=== PATIENT | female | born 1960 | race Caucasian/White ===

== ENCOUNTER → 2016-08-18 | Outpatient (CLI) | payer MEDICAID ==
[~2016-08-18] MED LIST: AMLODIPINE10 MG PO; DICLOFENAC SODI50 MG PO; DULOXETINE 30MG30 MG PO; FLEXERIL10 M1 PO; HYDROCHLOROTH12.5 M1 PO; HYDROCODONE-APA1 TA1 PO; HYDROXYZINE 25M25 MG PO; LIPITOR40 MG PO; LORATADINE 10MG10 M1 PO; LORTAB 5/500 501 TAB PO; NADOLOL PO; NAPROSYN 500MG500 MG PO; NOMEDS; OXYCODONE-ACETA1 TAB PO
--- NOTE | 2016-08-18 14:46 | RADIOLOGY REPORT PS360 ---
WRIST-3 VIEWS-LT INDICATION: Left wrist pain TECHNIQUE: 3 views left wrist COMPARISON: 3 views left wrist from 01/14/2013 FINDINGS: . Distal radius and ulna intact. Carpal bones appear intact and unchanged. Joint spaces are fairly well-maintained throughout the wrist with no acute findings. The fat plane anterior to wrist appears normal and stable. No fracture nor dislocation apparent. . Normal mineralization. No obvious radio opaque foreign bodies. IMPRESSION: Negative left wrist. Intact No significant change since 2012
== END ==
LOC: RAD 13:25
DX: M25.532 Pain in left wrist (principal)

== ENCOUNTER 2017-01-21 17:30 | Emergency (ER) | payer MEDICAID ==
[~2017-01-21] VITALS: Ht 165.1 cm; Wt 54.4 kg
[2017-01-21 17:56] LABS: HEMOGLOBIN 14.2 g/dL (12.2-16.2); LYMPH # 2.8 K/mm3 (0.7-4.5); LYMPH % 45.6 % (10-50.0)
--- NOTE | 2017-01-21 17:59 | Emergency Room Report ---
History of Present Illness Time Seen by [id number] Presenting Problem in Triage Pt arrived:Walked Presenting Problem:RIGHT SIDE NUMBNESS, FEELS LIKE MOUTH IS DRAWN. NO OBVIOUS SIGNS. WEAKER TECHNICAL STAFF ENGINEER RIGHT HAND Onset of symptoms date/time:/ or onset unknown for:MEDICAL HX UNKNOWN Treatment Prior to Arrival: LATHE WINDER Provided by: Sepsis Risk Assessment: Temp: 98.3 B/P: 123/75 MAP: 91 Pulse: 85 Resp: 18 Recent fever? N Clinical Suspician of Infection? Y Mental Status: 1 - Regular (Normal Baseline) Sepsis Risk:Low Sepsis Risk Have you (or family members/close friends) recently traveled outside the [place]? N If Yes, where/when: Have you had exposure to infectious disease within the past month? TB? Other? Specify: Source patient, RN notes reviewed Exam Limitations no limitations Comment Pt comes to the ED ~5:45 PM with complaints of feeling some right sided weakness and numbness since about 9:30 PM last night but says it was worse around 6:30 AM today when she woke up. She has a history of CAD and says she has had a "few" heart attacks but denies having any stents or bypass surgery. She does take a Baby Aspirin daily and also a statin drug and a beta adam. 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 Now complains of numbness in the right hand and right leg and into her right foot but her smile is symmetrical, speech is clear and tongue protrudes in the midline. When she closes her eyes she seems to have some trouble holding her right arm up and it is tremulous but I do not see an obvious arm drift. She has never had a stroke or a TIA in the past and no black spells or dizziness reported at this time After getting most of her tests back, she told me she has been taking care of her 80 yo mother who fell several months ago and broke a bunch of bones but the mother is ambulating some now and seems to be doing better . The pt also just started a new job sewing and that has been an added stress as well Cardiac Chest Pain Chest pain indicative of cardiac No ALLERGIES Coded Allergies: Penicillins (Intermediate, I-RASH 01/21/17) diphenhydramine (From BENADRYL) (Intermediate, BP RAISES 01/21/17) gabapentin (Intermediate, I-HIVES 01/21/17) morphine (Intermediate, I-HIVES 01/21/17) Home Medications Reported Medications Diclofenac Sodium (Unknown Dose) PO BID Amlodipine Besylate (Amlodipine) (Unknown Dose) PO DAILY Hydrochlorothiazide (Hydrochlorothiazide 12.5MG) 12.5 MG PO DAILY Duloxetine Hcl (Duloxetine 30MG Capsule) 30 MG PO DAILY Nadolol (Unknown Dose) PO DAILY Atorvastatin Calcium (Atorvastatin) (Unknown Dose) PO DAILY Loratadine (Loratadine 10MG Tablet) 10 MG PO DAILY Hydroxyzine Pamoate (Hydroxyzine) (Unknown Dose) PO PRN PRN RASH (Art OCAMPO,Aubree) History Medical History General CAD? Yes Angina: Yes [place]: Yes Hypertension? Yes Hyperlipidemia? Yes CHF? Yes DVT? No PE? No COPD? No Asthma? Yes Anemia? No GERD? Yes Gastric ulcers? No GI Bleed? No Hernia? No Thyroid Problems? No Hypothyroidism? No CVA? No Seizures? No Diabetes? No Renal Insuffiency? No End Stage Renal Disease? No UTI? No Stones? No BPH? No GB Disease: No Nephritic Syndrome? No Asplenia? No Hepatitis? No Sickle Cell Disease? No Arthritis? Yes Migraines? No Cataracts? No Glaucoma? No MRSA? No HIV? No TB? No Anxiety? Yes Depression? No Cancer? No More? 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 LMP N/A Family History Family Hx Diabetes Yes CAD Yes Hypertension Yes Hyperlipidemia Yes Cancer Yes TB No Social History Smoking Hx Smoker: Current Every Day Smoker Tobacco: Yes Type Cigarettes Packs/day < 1 Pack Alcohol Alcohol: No (Art OCAMPO,Aubree) Review of Systems All Other Systems Reviewed and Negative Constitutional see HPI Cardiovascular see HPI Musculoskeletal see HPI Psychiatric/Neurological see HPI (Aubree Cordova MD) Physical Exam Vital Signs Vital Signs Date Time Temp Pulse Resp B/P Pulse O2 O2 Flow FiO2 Ox Delivery Rate 01/21 2002 85 16 160/109 100 01/21 1923 20 01/21 1918 87 18 171/118 97 01/21 1746 98.3 85 18 123/75 98 General Appearance normal appearance, WD/WN, no apparent distress Neck normal inspection, non-tender, supple, full range of motion, no bruits heard by me Respiratory Status No: respiratory distress. 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 No Results/Orders Laboratory Tests 01/21/17 1915: Opiates Screen Pending, Urine Methadone Screen Pending, Barbiturates Pending, Phencyclidine Screen Pending, Amphetamines Screen Pending, Benzodiazepines Screen Pending, Cocaine Screen Pending, Marijuana (THC) Screen Pending, Urine Color YELLOW, Urine Appearance CLEAR, Urine pH 7.0, Ur Specific Friendship <= 1.005 , Urine Protein NEGATIVE, Urine Ketones NEGATIVE, Urine Blood TRACE-INTACT, Urine Nitrate NEGATIVE, Urine Bilirubin NEGATIVE, Urine Urobilinogen 0.2, Ur Leukocyte Esterase NEGATIVE, Urine RBC 3-5, Urine WBC OCC, Ur Squamous Epith Cells 3-5, Urine Bacteria OCC, Urine Glucose NEGATIVE 01/21/17 1800: Sodium 136, Potassium 3.2 L, Chloride 102, Carbon Dioxide 25, BUN 8, Creatinine 0.8, Estimated Creat Clear 68, Estimated GFR (MDRD) 74, Glucose 111 H, Calcium 8.9, Total Bilirubin 0.3, AST 9 L, ALT 13, Alkaline Phosphatase 88, Total Protein 6.8, Albumin 3.6, Globulin 3.2, Albumin/Globulin Ratio 1.1, PT 10.4, INR 0.96, APTT 27.1 01/21/17 1745: WBC 6.2, RBC 4.28, Hgb 14.2, Hct 42.1, MCV 98.4 H, RDW 13.1, Plt Count 333, MPV 7.2 L, Gran % 46.1, Gran # 2.9, Lymphocytes % 45.6, Monocytes % 6.5, Eosinophils % 1.1, Basophils % 0.7, Lymphocytes # 2.8, Monocytes # 0.4, Eosinophils # 0.1, Basophils # 0.0, PUBS MCHC 33.8, MCH 33.3 H Current Medication Orders Sig/Sotero Start time Last Medication Dose Route Stop Time Status Admin Ketorolac 30 MG ONCE ONE 01/21 1930 DC 01/21 Tromethamine IV 01/21 Ketorolac 0 .STK-MED ONE 01/21 1921 DC Tromethamine .ROUTE Sodium Chloride 10 ML PRN PRN 01/21 1745 AC IV 01/22 1740 Orders Procedure Date/time Status DIET-NOTHING BY MOUTH 01/[address] LUMBAR WITH CONTRAST 01/[address] SCAN REQUEST 01/21 191 Complete URINALYSIS/COMPLETE 01/21 175 Complete PARTIAL THROMBOPLASTIN TIME 01/21 175 Complete PROTHROMBIN TIME 01/21 175 Complete DRUG ABUSE SCREEN (10) 01/[address] HEAD REQ 01/21 174 Active IV SALINE LOCK 01/21 174 Active CBC WITH AUTO DIFF 01/21 1741 Complete CHEM 12 PROFILE 01/21 1741 Complete Departure Departure Time of Disposition 2029 Clinical Impression Primary Impression: Generalized anxiety disorder Secondary Impressions: Degenerative disc disease Qualifiers: Spinal region: lumbar Qualified Code: M51.36 - Other intervertebral disc degeneration, lumbar region Condition STABLE Referrals Heron OCAMPO,Joel Barboza (Family): [facility] Patient Instructions Anxiety Disorders, DI for Anxiety -- Adult, Generalized Anxiety Disorder, Low Back Pain Additional Instructions Use medicines as directed. Followup with Dr. Shelby if symptoms worsen for further evaluation. Send home with robaxin 500 mg TID to take with her Diclofenac and if her labs are normal she will be discharged home by Dr. Ravi to followup with dr. Shelby Discharge Counseling Counseled pt/family regarding diagnosis, test results, medications/RX, home care, follow up needs Prescriptions Current Visit Scripts Methocarbamol (Robaxin) 500 MG PO TID #90 TAB ED Critical Care Critical Care No If Critical Care minutes are documented, the time involved in the performance of seperately reportable procedures was not counted toward critical care time documented. I directly delivered medical care to this critically ill and/or injured patient. Timely evaluation and treatment was necessary to address the significant organ system(s) dysfunction present in this patient. (Art OCAMPO,Aubree) Departure Disposition DC Home or Self Care(routine) (Breonna OCAMPO,Vaishali Mendez) at 2035 at 2106
--- NOTE | 2017-01-21 18:06 | RADIOLOGY REPORT PS360 ---
CT CT HEAD WITHOUT CONTRAST CT BONE WINDOWS included ORDERING PHYSICIAN : Aubree Cordova MD PATIENT AGE: 56 years GENDER: Female PROCEDURE: Routine axial images headwithout contrast. Brain & bone windows HISTORY: RT SIDE WEAKNESS. COMPARISON: Previous CT head with with without contrast from February 2016 FINDINGS: No acute intracranial findings. No hemorrhage. No mass effect or mass lesion. No subdural nor extra-axial collection. Ventricles & basal cisterns appear satisfactory. Guerra & white matter patterns satisfactory. The posterior fossa appear satisfactory and unremarkable. The skull is intact. Mild mucosal thickening throughout the partially imaged left maxillary sinus. Deviation nasal septum to the left.. Mastoid air cells, middle ear & IACs are unremarkable. Critical result called to ER stat on 01/21/2017 6:02 PM. IMPRESSION: No acute intracranial findings. No significant change since previous CT head 03/30/2016.
[2017-01-21 20:59] LABS: URINE BILIRUBIN - DIPSTICK NEGATIVE (NEG); URINE BLOOD TRACE-INTACT (NEG)
[2017-01-21 21:08] LABS: AMPHETAMINES/METAMPHETAMINES NEGATIVE ng/mL (<1000)
[2017-01-21 21:11] VITALS: BP 160/109
--- NOTE | 2017-01-23 10:00 | RADIOLOGY REPORT PS360 ---
CT LUMBAR WITH CONTRAST HISTORY: LOW BACK PAIN low back pain radiates to right hip. At the 6-year-old. Patient Age: 56 years: Female Ordering Physician: Vaishali Ravi MD TECHNIQUE: Helical CT scan film lumbar spine with sagittal coronal reconstructions COMPARISON : No previous studies FINDINGS Vertebral bodies, no compression fractures. No discrete acute findings. Mild dextroscoliosis upper T-spine most evident at L1-L2 T10/11 and T 11/12.:. Disc intact these levels borderline narrowing. . L1/L2. Disc space narrowing most evident most notable at this level. Disc space narrowing is slightly more pronounced to the left. Associated vacuum phenomena & mild reactive endplate changes.. Mild Diffuse Disc bulge most evident central appears to be evident at this level on sagittal images. Anterior marginal osteophytes. Also generous Schmorl's node superior endplate L2.. L2/3. Disc intact unremarkable L3/4. Disc well-maintained. Only perhaps scant leftward disc bulge with minor left foraminal encroachment question. L4/5. Borderline disc space narrowing. Minimal diffuse disc bulge. Mild ligamentum flavum hypertrophy and facet hypertrophy. These features only very subtle narrowing of of spinal canal but no significant stenosis as of yet L5/S1. Disc well maintained with only slight narrowing to the right Scant if any disc bulge. Mild central calcification along disc margin. Facetsintact. Transverse processes intact. Sacrum intact. Incidental note elongated lobe of liver measuring 23 cm length and extending into the right pelvis-likely Shikha's lobe overall liver volume appearing satisfactory otherwise.: . Generous stool throughout the colon. No renal calculi. IMPRESSION . 1. No compression fracture. no acute findings 2. Mild degenerative changes L-spine: -Most notable is the degenerative disc space narrowing most evident at L1/2, associated with Mild dextroscoliosis associated at this level.. Diffuse disc bulge -Also minor degenerative disc changes L4/5 and possibly L5/S1. . L4/5 with mild bulging disc & minor ligamentum flavum and facet hypertrophy. 3. No disc herniation evident. No martinez spinal stenosis nor prominent foraminal encroachment by CT. If symptoms progress consider MR ...
== END 2017-01-21 21:15 | disposition home or self-care (01) ==
LOC: ER 17:30
PROVIDERS: General Practice
DX: F41.1 Generalized anxiety disorder (principal); M51.36 Other intervertebral disc degeneration, lumbar region; F17.210 Nicotine dependence, cigarettes, uncomplicated; I25.10 Atherosclerotic heart disease of native coronary artery without angina pectoris; I25.2 Old myocardial infarction; E78.5 Hyperlipidemia, unspecified; I11.0 Hypertensive heart disease with heart failure; I50.9 Heart failure, unspecified; J45.909 Unspecified asthma, uncomplicated; Z79.899 Other long term (current) drug therapy

== ENCOUNTER → 2017-02-13 | Outpatient (CLI) | payer MEDICAID ==
[~2017-02-13] MED LIST changes: +ROBAXIN500 M1 PO
--- NOTE | 2017-02-16 19:57 | RADIOLOGY REPORT PS360 ---
PROCEDURE: 2-D M-mode and color Doppler study INDICATIONS FOR THE TEST: Chest pain X COPD Heart Murmur Tobacco SmokingX Palpitations FatigueX Syncope Edema HypertensionXDiabetes Mellitus Rheumatic Fever SOBXDOE Obesity Hyperlipidemia Family History HD Additional History DAVID PATIENT INFORMATION HEIGHT: 65 WEIGHT:108 GENDER: Female B/P:125/84 2-D/M-MODE INTERPRETATION: 2-D MEASUREMENTS OBSERVED VALUES IN CMS Right Ventricular Dimension (RVDd) 1.2 Interventricular Septum (Thickness)(IVsd) .7 Left Ventricular Internal Dimensions(LVIDd) 4.8 Left Ventricular Posterior Wall (Thickness)(LVPWd) .8 Aortic Root 3.2 Aortic Cusp Separation 1.5 Left Atrial Dimensions (LAD) 2.1 2D 1. Left atrium is qualitatively mildly enlarged, left ventricle is normal size, there is mild concentric left ventricular hypertrophy present, visually estimated ejection fraction 55% with no obvious regional wall motion abnormality. 2. The right atrium and right ventricle are normal size and contractility. 3. The aortic valve is minimally thickened and fibrosed. 4. The mitral and tricuspid valve leaflets are minimally thickened, there is mild mitral annular calcification present. 5. The pulmonic valve is poorly visualized. 6. No significant pericardial effusion noted. DOPPLER INTERROGATION: Doppler interrogation of the aortic, mitral and tricuspid valvular presence of mild mitral and tricuspid regurgitation, tricuspid and jet velocity is insufficient for calculation of the right ventricular systolic pressure, grade 1 diastolic dysfunction seen without tissue Doppler evidence of raised left atrial pressure. CONCLUSION: 1. Mildly enlarged left atrium, normal left ventricular size, mild concentric left ventricular hypertrophy, visually estimated ejection fraction 55% with no obvious regional wall motion abnormality, grade 1 diastolic dysfunction seen without tissue Doppler evidence of raised left atrial pressure. 2. Mild mitral and tricuspid regurgitation. 3. No significant pericardial effusion noted.
== END ==
LOC: RT 15:15
DX: I25.10 Atherosclerotic heart disease of native coronary artery without angina pectoris (principal); I10 Essential (primary) hypertension; R53.83 Other fatigue; R06.83 Snoring; G47.33 Obstructive sleep apnea (adult) (pediatric)